=== PATIENT | male | born 2000 | race Caucasian/White ===

== ENCOUNTER 2024-09-21 01:24 | Observation (INO) | payer BC, SELFPAY ==
[2024-09-21] VITALS (10 sets, daily range): BP systolic 152–172; BP diastolic 82–113; PULSE 120–147; TEMP 36.8–39.5; O2SAT 94–98; BMI 59.1; BMI 67.1
--- NOTE | 2024-09-21 01:37 | PC.NURSE ---
complains of a rash to his right lower leg onset 1 day ago
--- NOTE | 2024-09-21 01:50 | ED_ITS ---
HPI - Fever General Chief Complaint: Extremity Problem, Nontraumatic Stated Complaint: rash r leg Time Seen by Provider: 09/21/24 01:43 Source: patient Mode of arrival: walk-in Limitations: no limitations History of Present Illness HPI Narrative: ill past couple of days with fever and feels light headed. No nausea or vomiting. erythema and pain right leg. No cough or dyspnea Related Data Previous Rx's ?Medication ?Instructions ?Recorded ibuprofen 600 mg tablet 600 mg PO Q8H PRN fever or pain 09/21/24 #30 tabs metoprolol succinate 25 mg 25 mg PO DAILY #30 tabs 09/21/24 tablet,extended release 24 hr (Toprol XL) sulfamethoxazole 800 1 tab PO BID #20 tabs 09/21/24 mg-trimethoprim 160 mg tablet (Bactrim DS) Allergies Allergy/AdvReac Type Severity Reaction Status Date / Time No Known Drug Allergies Allergy Verified 09/21/24 01:33 Review of Systems 2 ROS0 Status of ROS 10 or more systems reviewed and unremark able except as noted in history and below [facility] Medical History (Updated 09/21/24 @ 10:38 by Shaikh Luz Maria MD) Morbid (severe) obesity due to excess calories ?E66.01 - Morbid (severe) obesity due to excess calories (ICD-10) Depression ?F32.A - Depression, unspecified (ICD-10) Surgical History (Updated 09/21/24 @ 03:32 by Pushpa Martinez) History of tonsillectomy and adenoidectomy ?Z90.89 - Acquired absence of other organs (ICD-10) Family History (Updated 09/21/24 @ 03:32 by Pushpa Martinez) Other Family history of diabetes mellitus Social History (Updated 09/21/24 @ 03:33 by uPshpa Martinez) Within the past year, how often did you have a drink containing alcohol: never Score interpretation: A score less than 4 is consistent with normal alcohol consumption. Smoking status: Never smoker Non-prescribed substance use: denies use Previous occupational history: unemployed Highest level of school completed/degree received: high school graduate In a typical week, how many times do you talk on the telephone with family, friends, or neighbors: 3 or more times per week How often do you get together with friends or relatives: 3 or more times per week Little interest or pleasure in doing things: not at all Feeling down, depressed, or hopeless: not at all Feel stressed/tense/nervous/anxious/difficulty sleeping: not at all Do you think of yourself as: straight/heterosexual Gender Identity: male Exam Constitutional Vital Signs, click to edit/add: Last Vital Signs Temp 98.3 F 09/21/24 07:40 Pulse 120 H 09/21/24 09:52 Resp 18 09/21/24 07:40 BP 156/84 H 09/21/24 07:40 Pulse Ox 97 09/21/24 10:39 O2 Del Method Room Air 09/21/24 10:39 Common normals: no apparent distress, oriented x3, no limitations, alert and well nourished HENMT Common normals: normocephalic and head/scalp atraumatic Eye Common normals: PERRL, EOMs intact bilaterally and conjunctivae normal Respiratory Common normals: normal respiratory effort, no retractions, no use of accessory muscles and clear to auscultation bilaterally Cardio Common normals: S1 normal heart sound and S2 normal heart sound Rate: tachycardic GI Common normals: Normal to inspection, nondistended, normoactive bowel sounds present and soft to palpation Extremity Extremity image (front): 2 1. erythema and swelling Neuro Common normals: oriented x3, CN's II-XII intact bilaterally, moves all extremities and no focal motor deficits Psych Appearance: grossly normal Course Vital Signs Vital signs: Vital Signs Temperature 103.1 F H 09/21/24 01:33 Respiratory Rate 22 H 09/21/24 01:33 Blood Pressure 156/87 H 09/21/24 01:33 Pulse Oximetry 94 L 09/21/24 01:33 Oxygen Delivery Method Room Air 09/21/24 01:33 Temperature 98.3 F 09/21/24 07:40 Pulse Rate 120 H 09/21/24 09:52 Respiratory Rate 18 09/21/24 07:40 Blood Pressure 156/84 H 09/21/24 07:40 Pulse Oximetry 97 09/21/24 10:39 Oxygen Delivery Method Room Air 09/21/24 10:39 MDM - Fever MDM Narrative Medical decision making narrative: patient presents ill for a couple of days with fever and feeling light headed. ERythema and warmth of the RLE also has mild swelling. temp. 103. Erythema involves most of the right below knee leg. Patient medicated with IV fluids and 2 gm of Vancomycin. Discussed with the hospitalist and patient accepted for admission Lab Data Labs: Lab Results 09/21/24 Range/Units 01:58 WBC 10.2 (4.0-11.0) 10^3/uL RBC 5.00 (4.70-6.10) 10^6/uL Hgb 14.0 (14.0-18.0) g/dL Hct 42.0 (42.0-54.0) % MCV 84.0 (80.0-94.0) fL MCH 28.0 (25.9-34.0) pg MCHC 33.3 (29.9-35.2) g/dL RDW 13.6 (11.0-15.0) % Plt Count 212 (150-450) 10^3/uL MPV 9.0 L (9.5-13.5) fL Neut % (Auto) 82.2 H (43.0-75.0) % Lymph % (Auto) 10.9 L (20.5-60.0) % Rooks % (Auto) 6.2 (1.7-12.0) % Eos % (Auto) 0.0 L (0.9-7.0) % Baso % (Auto) 0.2 (0.2-2.0) % Neut # (Auto) 8.4 H (1.4-6.5) 10^3/uL Lymph # (Auto) 1.1 L (1.2-3.8) 10^3/uL Rooks # (Auto) 0.6 (0.3-0.8) 10^3/uL Eos # (Auto) 0.0 (0.0-0.7) 10^3/uL Baso # (Auto) 0.0 (0.0-0.1) 10^3/uL Abs Immat Gran (auto) 0.05 H (0.00-0.03) 10^3/uL Imm/Tot Granulo (auto) 0.5 (0.0-0.5) % Sodium 131 L (136-145) mmol/L Potassium 3.9 (3.5-5.1) mmol/L Chloride 96 L (98-107) mmol/L Carbon Dioxide 22.3 (21.0-32.0) mmol/L Anion Gap 16.6 BUN 13.0 (7.0-18.0) mg/dL Creatinine 1.18 (0.70-1.30) mg/dL Est GFR ( Amer) >60 (>=60 mL/min/1.73m^2) Est GFR (Non-Af Amer) >60 (>=60 mL/min/1.73m^2) BUN/Creatinine Ratio 11.0 Glucose 128 H (74-106) mg/dL Lactate 1.7 (0.4-2.0) mmol/L Calcium 9.5 (8.5-10.1) mg/dL Discharge Plan Discharge Chief Complaint: Extremity Problem, Nontraumatic Clinical Impression: Cellulitis Qualifiers: Site of cellulitis: extremity Site of cellulitis of extremity: lower extremity Laterality: right Qualified Code(s): L03.115 - Cellulitis of right lower limb Patient Disposition: Admitted as Observation Discharge Date/Time: 09/21/24 03:14
[2024-09-21 02:03] LABS: Basophils Percent Auto 0.2 % (0.2-2.0); Immature Granulocytes Abs Auto 0.05 10^3/uL (0.00-0.03); Immature Granulocytes Pct Auto 0.5 % (0.0-0.5); Lymphocytes Absolute Auto 1.1 10^3/uL (1.2-3.8); Lymphocytes Percent Auto 10.9 % (20.5-60.0); Mean Corpuscular HGB Conc 33.3 g/dL (29.9-35.2); Monocytes Absolute Auto 0.6 10^3/uL (0.3-0.8); Monocytes Percent Auto 6.2 % (1.7-12.0); Neutrophils Absolute Auto 8.4 10^3/uL (1.4-6.5); Neutrophils Percent Auto 82.2 % (43.0-75.0); Platelet Count 212 10^3/uL (150-450); Red Cell Distribution Width 13.6 % (11.0-15.0); White Blood Count 10.2 10^3/uL (4.0-11.0)
[2024-09-21] MEDS: 0.9 % SODIUM CHLORIDE 1,000 ML 999 ML IV (02:06)
[2024-09-21] MEDS: IBUPROFEN 400 MG TABLET 800 MG PO (02:14)
[2024-09-21 02:15] LABS: Anion Gap 16.6; Calcium 9.5 mg/dL (8.5-10.1); Carbon Dioxide 22.3 mmol/L (21.0-32.0); Chloride 96 mmol/L (98-107); Estimated GFR (African America >60 (>=60 mL/min/1.73m^2); Estimated GFR (Non-African Ame >60 (>=60 mL/min/1.73m^2); Glucose 128 mg/dL (74-106); Potassium 3.9 mmol/L (3.5-5.1); Sodium 131 mmol/L (136-145)
[2024-09-21] MEDS: VANCOMYCIN HCL 2,000 MG in 0.9 % SODIUM CHLORIDE 500 ML 250 MG IV (02:19)
[2024-09-21 02:24] LABS: Lactate/Lactic Acid 1.7 mmol/L (0.4-2.0)
--- NOTE | 2024-09-21 03:24 | ECG_ITS ---
[facility] Test Date: 2024-09-21 Pat Name: OMER MCCLAIN Department: Room: [facility] Gender: Male Res Counselor: : 2000 Requested By: Order Number: [id number] Reading MD: POP NEWTON Measurements Intervals [place] Rate: 148 P: 49 [place]: 143 QRS: 58 QRSD: 90 T: 17 QT: 279 QTc: 438 Interpretive Statements SINUS TACHYCARDIA, POSSIBLE ATRIAL FLUTTER NONSPECIFIC T-WAVE ABNORMALITY ABNORMAL RHYTHM ECG Compared to ECG 12/01/2019 21:20:13 T-wave abnormality now present Electronically Signed On 09-21-2024 6:55:49 EST by POP NEWTON
--- NOTE | 2024-09-21 03:24 | CT_ITS ---
[address] [address] Patient Name: OMER MCCLAIN MRN: [id number] date: 2000 Sex: M Assigned Patient Location: [place] Current Patient Location: [place] Accession/Order Number: [id number] Exam Date: 09/21/2024 03:50 Report Date: 09/21/2024 05:39 At the request of: CARLA JANG Procedure: CT lower leg RT wo/w con EXAMINATION: CT lower leg RT wo/w con HISTORY: right leg cellulitis with sepsis COMPARISON: No relevant comparison available. TECHNIQUE: Multi-planar CT images were created without and/or with IV contrast according to examination type. Dose reduction techniques were achieved by using automated exposure control and/or adjustment of mA and/or kV according to patient size and/or use of iterative reconstruction technique. FINDINGS: BONES: No fracture, dislocation, bone lesion. Moderate narrowing of the medial compartment of the knee joint. SOFT TISSUES: Subcutaneous edema of the lower extremity, greatest involving the posterior lateral aspect. No fluid collection, mass, or abnormal enhancement. EFFUSION: None visible. OTHER: Negative. CT/CT lower leg RT wo/w con IMPRESSION: 1. Subcutaneous edema and skin thickening suggestive of cellulitis. 2. Joint space narrowing of the medial compartment of the knee suggestive of cartilage thinning or meniscus extrusion. Electronically authenticated by: BOB SMITH Date: 09/21/2024 05:39
--- NOTE | 2024-09-21 03:37 | PC.NURSE ---
this patient is awake and alert sitting upright on the bed, this patient voices no complaints and shows no signs of distress. this patient was transferred upstairs via bed, this patient had his iv fluids and iv atb continued infusion while transferred upstairs. per casting house worker asked to make sure that Dr Orozco knows this patient vitals, I called Dr Patrick and informed him of the casting house worker concerns. Dr Patrick was re-informed of this patient vitals, and he said that call take care of that upstairs. i took a manual blood pressure and see vitals
[2024-09-21 06:06] LABS: Basophils Percent Auto 0.1 % (0.2-2.0); Hematocrit 40.7 % (42.0-54.0); Hemoglobin 13.8 g/dL (14.0-18.0); Immature Granulocytes Abs Auto 0.06 10^3/uL (0.00-0.03); Immature Granulocytes Pct Auto 0.5 % (0.0-0.5); Lymphocytes Absolute Auto 1.6 10^3/uL (1.2-3.8); Lymphocytes Percent Auto 13.5 % (20.5-60.0); Mean Corpuscular HGB Conc 33.9 g/dL (29.9-35.2); Mean Corpuscular Hemoglobin 28.6 pg (25.9-34.0); Mean Corpuscular Volume 84.3 fL (80.0-94.0); Mean Platelet Volume 8.7 fL (9.5-13.5); Monocytes Absolute Auto 0.6 10^3/uL (0.3-0.8); Monocytes Percent Auto 5.3 % (1.7-12.0); Neutrophils Absolute Auto 9.3 10^3/uL (1.4-6.5); Neutrophils Percent Auto 80.6 % (43.0-75.0); Platelet Count 230 10^3/uL (150-450); Red Blood Count 4.83 10^6/uL (4.70-6.10); Red Cell Distribution Width 13.6 % (11.0-15.0); White Blood Count 11.5 10^3/uL (4.0-11.0)
[2024-09-21 06:29] LABS: Alanine Aminotransferase 27 U/L (16-63); Albumin Globulin Ratio 0.6; Albumin Level 2.8 g/dL (3.4-5.0); Alkaline Phosphatase 77 U/L (46-116); Anion Gap 16.5; Aspartate Amino Transferase 22 U/L (15-37); BUN Creatinine Ratio 10.1; Bilirubin Total 0.7 mg/dL (0.2-1.0); Calcium 8.6 mg/dL (8.5-10.1); Carbon Dioxide 23.1 mmol/L (21.0-32.0); Chloride 98 mmol/L (98-107); Estimated GFR (African America >60 (>=60 mL/min/1.73m^2); Estimated GFR (Non-African Ame >60 (>=60 mL/min/1.73m^2); Glucose 119 mg/dL (74-106); Magnesium 1.8 mg/dL (1.8-2.4); Potassium 3.6 mmol/L (3.5-5.1); Sodium 134 mmol/L (136-145); Total Protein 7.8 g/dL (6.4-8.2)
[2024-09-21 06:42] LABS: C Reactive Protein 42.49 mg/dL (<=0.50); Creatine Kinase 289 U/L (39-308); Creatine Kinase MB <0.50 ng/mL (<=3.60); Myoglobin 168 ng/mL (16-96); Troponin I High Sensitivity 10.7 pg/mL (4.0-76.1)
[2024-09-21] MEDS: HEPARIN SODIUM (PORCINE) 5,000 UNIT/ML VIAL 7500 UNIT SUBQ (09:43)
[2024-09-21] MEDS: LINEZOLID IN DEXTROSE 5% 600 MG/300 ML PIGGYBACK 300 MG IV (09:43)
--- NOTE | 2024-09-21 10:31 | PM.HP ---
HPI H&P: HPI History of Present Illness Chief complaint: rash r leg Narrative: HPI and Hospital Course: HPI and Hospital Course: 23 y o morbidly obese male, presented to ED with right leg extremity erythema, tenderness and pain. He noticed a small bump on his right leg 2 days that rapidly progressed and worsened over past 2 days. He came to ED last night for it and was found to have fever of 101. He was also noted to be tachycardic but this is chronic and he is supposed to be on Toprol which he has not been using for past few months. Patient was found to have RLE cellulitis and was treated with Vancomycin. He is afebrile today and feels that pain/erythema and swelling has improved overnight with IV abx. Patient denies nausea, vomiting, leg trauma, prior hx of cellulitis. He also denies hx of T2 DM or current immunosuppression. Besides tachycardia, that is chronic, he is hemodynamically stable and can be discharged on oral abx to finish treatment course of cellulitis. Patient educated on worrisome signs and symptoms, importance of compliance and f/u and to return to ED if he develops persistent fever, hemodynamic instability or worsening pain/erythema while on oral abx. He was also instructed to f/u with PCP in one week Opioid HPI Opioid Management Most Recent Pain and Opioid Data: Last Pain Scale 0 09/21/24 08:00 09/21/24 Last Pain Assessment 09/21/24 10:32 Last ORT Total Score 2 09/21/24 03:26 09/21/24 Last ORT Risk Category Low Risk 09/21/24 03:26 09/21/24 Review of Systems ROS Status of ROS 10 or more systems reviewed and unremarkable except as noted in history and below [facility] Medical History (Updated 09/21/24 @ 10:38 by Shaikh Luz Maria MD) Morbid (severe) obesity due to excess calories ?E66.01 - Morbid (severe) obesity due to excess calories (ICD-10) Depression ?F32.A - Depression, unspecified (ICD-10) Surgical History (Updated 09/21/24 @ 03:32 by Pushpa Martinez) History of tonsillectomy and adenoidectomy ?Z90.89 - Acquired absence of other organs (ICD-10) Family History (Updated 09/21/24 @ 03:32 by Pushpa Martinez) Other Family history of diabetes mellitus Social History (Updated 09/21/24 @ 03:33 by Pushpa Martinez) Within the past year, how often did you have a drink containing alcohol: never Score interpretation: A score less than 4 is consistent with normal alcohol consumption. Smoking status: Never smoker Non-prescribed substance use: denies use Previous occupational history: unemployed Highest level of school completed/degree received: high school graduate In a typical week, how many times do you talk on the telephone with family, friends, or neighbors: 3 or more times per week How often do you get together with friends or relatives: 3 or more times per week Little interest or pleasure in doing things: not at all Feeling down, depressed, or hopeless: not at all Feel stressed/tense/nervous/anxious/difficulty sleeping: not at all Do you think of yourself as: straight/heterosexual Gender Identity: male Meds Home Medications and Allergies Home Medications ?Medication ?Instructions ?Recorded ?Confirmed ?Type No Known Home Medications 09/21/24 09/21/24 History Allergies Allergy/AdvReac Type Severity Reaction Status Date / Time No Known Drug Allergies Allergy Verified 09/21/24 01:33 Exam Constitutional Vital Signs, click to edit/add: Last Vital Signs Temp 98.3 F 09/21/24 07:40 Pulse 120 H 09/21/24 09:52 Resp 18 09/21/24 07:40 BP 156/84 H 09/21/24 07:40 Pulse Ox 98 09/21/24 07:40 O2 Del Method Room Air 09/21/24 07:40 Documenting provider has reviewed patient's vital signs: yes Common normals: no apparent distress and oriented x3 General appearance: cooperative Nutritional appearance: obese Eye Common normals: conjunctivae normal and no scleral icterus Conjunctiva: conjunctiva(e) normal Respiratory Common normals: normal respiratory effort and clear to auscultation bilaterally Effort & inspection: able to speak in complete sentences Auscultation: clear to auscultation bilaterally Cardio Common normals: regular rate, S1 normal heart sound and S2 normal heart sound Rate: regular rate Heart sounds: S1 normal and S2 normal Extremity Common normals: no clubbing, cyanosis or edema Other: Distinct/well demarcated area of erythema,pain and tenderness of RLE - about 10x10 cm. Warm to touch Neuro Common normals: oriented x3, moves all extremities and no focal motor deficits Psych Common normals: mental status grossly normal, denies hallucinations, denies homicidal ideation and denies suicidal ideation Results Labs Labs: Short CBC 09/21/24 09/21/24 Range/Units 01:58 05:38 WBC 10.2 11.5 H (4.0-11.0) 10^3/uL Hgb 14.0 13.8 L (14.0-18.0) g/dL Hct 42.0 40.7 L (42.0-54.0) % Plt Count 212 230 (150-450) 10^3/uL BMP 09/21/24 09/21/24 01:58 05:38 Sodium 131 L 134 L Potassium 3.9 3.6 Chloride 96 L 98 Carbon Dioxide 22.3 23.1 BUN 13.0 11.0 Creatinine 1.18 1.09 Glucose 128 H 119 H Calcium 9.5 8.6 Cardiac Enzymes 09/21/24 Range/Units 05:38 Total Creatine Kinase 289 (39-308) U/L CK-MB (CK-2) <0.50 (<=3.60) ng/mL Liver Function 09/21/24 Range/Units 05:38 Total Bilirubin 0.7 (0.2-1.0) mg/dL AST 22 (15-37) U/L ALT 27 (16-63) U/L Alkaline Phosphatase 77 (46-116) U/L Albumin 2.8 L (3.4-5.0) g/dL Assessment and Plan Assessment and Plan (1) Cellulitis: Assessment and Plan: Hemodynamically stable, improved overnight with IV abx. Stable for discharge on oral bactrim. Qualifiers: Site of cellulitis: extremity Site of cellulitis of extremity: lower extremity Laterality: right Qualified Code(s): L03.115 - Cellulitis of right lower limb (2) Sinus tachycardia: Assessment and Plan: Chronic, supposed to be on Toprol. Ran out of it. Will prescribed. Stressed upon importance of compiance. (3) Depression: Assessment and Plan: Stable. no SI/HI. Recommended fu with PCP. Qualifiers: Depression Type: major depressive disorder Major depression recurrence: recurrent Active/Remission status: in partial remission Qualified Code(s): F33.41 - Major depressive disorder, recurrent, in partial remission (4) Morbid (severe) obesity due to excess calories: Assessment and Plan: Recommended weight loss. He is a good candidate for bariatric surgery. Defer to PCP
--- NOTE | 2024-09-21 10:41 | CM.NOTE ---
Rounds made with Dr. Loera. Cricket relates he is unable to pay for prescriptions--Good RX card given. Plan for discharge today. Cricket in agreement.
--- NOTE | 2024-09-22 13:31 | CM.DCFOLLOWU ---
1st attempt 09/22/24, no answer
--- NOTE | 2024-09-22 13:32 | CM.DCFOLLOWU ---
1st attempt 09/22/24, no answer
--- NOTE | 2024-09-23 13:35 | CM.DCFOLLOWU ---
2nd attempt 09/23/24, no answer
--- NOTE | 2024-09-25 13:44 | CM.DCFOLLOWU ---
3rd attempt 09/25/24, no answer
== END 2024-09-21 12:13 | disposition home or self-care (01) ==
LOC: ER 02:54 → MS 03:13
PROVIDERS: Registered Nurse; Admitting Provider Internal Medicine; Emergency Provider Internal Medicine; PCP Family Medicine; Visit Provider Internal Medicine
DX: L03.115 Cellulitis of right lower limb (principal); E66.01 Morbid (severe) obesity due to excess calories; F32.A Depression, unspecified; R00.0 Tachycardia, unspecified; Z68.44 Body mass index [BMI] 60.0-69.9, adult
CPT/HCPCS: 36415; 73702; 80048; 80053; 82550; 82553; 83605; 83735; 83874; 84484; 85025; 86140; 93005; 94761; 96365; 96366; 96367; 96372; 99285; G0378; J1644; J2020; J3370; Q9967

== ENCOUNTER 2024-09-25 15:34 | Emergency (ER) | payer BC, SELFPAY ==
[2024-09-25 15:45] VITALS: BP 177/85; PULSE 114; TEMP 36.7; O2SAT 98; BMI 63.5
--- NOTE | 2024-09-25 16:57 | PC.NURSE ---
dressing removed telfa dressing applied to back of leg pt tolerates well
--- NOTE | 2024-09-25 16:59 | ED_ITS ---
HPI HPI - General Adult General Chief complaint: Recheck/Abnormal Lab/Rx Stated complaint: CELLULITIS, WAS HERE ON SATURDAY Time Seen by Provider: 09/25/24 16:27 Mode of arrival: walk-in History of Present Illness HPI narrative: This patient is a 23-year-old male who presents to the emergency department for blisters that he noted on the back of his leg today. Patient was admitted for circumferential cellulitis of the right calf earlier this week. He was discharged 3 days ago and started on antibiotics. He states overall his right leg has improved significantly and he no longer has circumferential erythema, he now has concentrated erythema to the posterior right calf and today noted blisters around the area. Several of the blisters have opened and drained, he denies any new fevers, vomiting or pain. Related Data Previous Rx's ?Medication ?Instructions ?Recorded ibuprofen 600 mg tablet 600 mg PO Q8H PRN fever or pain 09/21/24 #30 tabs metoprolol succinate 25 mg 25 mg PO DAILY #30 tabs 09/21/24 tablet,extended release 24 hr (Toprol XL) sulfamethoxazole 800 1 tab PO BID #20 tabs 09/21/24 mg-trimethoprim 160 mg tablet (Bactrim DS) Allergies Allergy/AdvReac Type Severity Reaction Status Date / Time No Known Drug Allergies Allergy Verified 09/21/24 01:33 Opioid HPI Opioid Management Most Recent Opioid Data: Last Pain Scale 0 09/21/24 08:00 09/21/24 Last Pain Assessment 09/21/24 11:21 Last ORT Total Score 2 09/21/24 03:26 09/21/24 Last ORT Risk Category Low Risk 09/21/24 03:26 09/21/24 Review of Systems ROS Constitutional Denies: fever or chills Ears, nose, mouth, and throat Denies: throat pain or nasal congestion Respiratory Denies: shortness of breath Gastrointestinal Denies: nausea or vomiting Integumentary/Breast Reports: redness and skin pain; Denies: rash or itching Hematologic/Lymphatic Denies: easy bruising or easy bleeding [facility] Medical History (Updated 09/25/24 @ 17:00 by ANNA Clayton) Sinus tachycardia ?R00.0 - Tachycardia, unspecified (ICD-10) Cellulitis ?L03.90 - Cellulitis, unspecified (ICD-10) Morbid (severe) obesity due to excess calories ?E66.01 - Morbid (severe) obesity due to excess calories (ICD-10) Depression ?F32.A - Depression, unspecified (ICD-10) Surgical History (Updated 09/21/24 @ 03:32 by Pushpa Martinez) History of tonsillectomy and adenoidectomy ?Z90.89 - Acquired absence of other organs (ICD-10) Family History (Updated 09/21/24 @ 03:32 by Pushpa Martinez) Other Family history of diabetes mellitus Social History Within the past year, how often did you have a drink containing alcohol: never Score interpretation: A score less than 4 is consistent with normal alcohol consumption. Smoking status: Never smoker Non-prescribed substance use: denies use Previous occupational history: unemployed Highest level of school completed/degree received: high school graduate In a typical week, how many times do you talk on the telephone with family, friends, or neighbors: 3 or more times per week How often do you get together with friends or relatives: 3 or more times per week Little interest or pleasure in doing things: not at all Feeling down, depressed, or hopeless: not at all Feel stressed/tense/nervous/anxious/difficulty sleeping: not at all Do you think of yourself as: straight/heterosexual Gender Identity: male Exam Narrative Exam Narrative: Gen.: Awake, alert, in no distress, morbidly obese Head: Normocephalic, atraumatic ENT: Moist mucous membranes Respiratory: No respiratory distress Extremities: Moves extremities equally, calves are symmetric. Right calf with erythema noted to the posterior right calf and erythema has fluid-filled blisters noted to the lateral and inferior aspect of the redness. No active drainage or purulence. No circumferential erythema Psych: Normal mood and affect Neuro: No focal neuro deficit Skin: Warm, dry, intact Constitutional Vital Signs, click to edit/add: Last Vital Signs Temp 98.1 F 09/25/24 15:45 Pulse 114 H 09/25/24 15:45 Resp 18 09/25/24 15:45 BP 177/85 H 09/25/24 15:45 Pulse Ox 98 09/25/24 15:45 Course Vital Signs Vital signs: Vital Signs Temperature 98.1 F 09/25/24 15:45 Pulse Rate 114 H 09/25/24 15:45 Respiratory Rate 18 09/25/24 15:45 Blood Pressure 177/85 H 09/25/24 15:45 Pulse Oximetry 98 09/25/24 15:45 Temperature 98.1 F 09/25/24 15:45 Pulse Rate 114 H 09/25/24 15:45 Respiratory Rate 18 09/25/24 15:45 Blood Pressure 177/85 H 09/25/24 15:45 Pulse Oximetry 98 09/25/24 15:45 Medical Decision Making MDM Narrative Medical decision making narrative: Patient and family were given education and reassurance, suspect that the patient's morbid obesity is causing dependent edema to the posterior right calf with blister formation. No evidence of worsening cellulitis at this time. Reevaluated by attending physician and the patient is discharged home to continue regular wound care. Return to the ER if symptoms change or worsen SHARED APC VISIT, PHYSICIAN ATTESTATION: [id number] I performed a substantive part of the MDM during the patient?s E/M visit. I personally evaluated and examined the patient. I personally made or approved the documented management plan and acknowledge its risk of complications. Medical Records Medical records reviewed: Yes I reviewed the patient's medical records Discharge Plan Discharge Chief Complaint: Recheck/Abnormal Lab/Rx Clinical Impression: Encounter for wound re-check Patient Disposition: Home, Self-Care Time of Disposition Decision: 16:59 Condition: Good Prescriptions / Home Meds: No Action sulfamethoxazole-trimethoprim [Bactrim DS] 800-160 mg tablet 1 tab PO BID Qty: 20 0RF ibuprofen 600 mg tablet 600 mg PO Q8H PRN (Reason: fever or pain) Qty: 30 0RF metoprolol succinate [Toprol XL] 25 mg tablet extended release 24 hr 25 mg PO DAILY Qty: 30 0RF Print Language: Malagasy Instructions: [place] (ED) Referrals: CLAIRE DUDLEY [Primary Care Provider] - 1 week
== END 2024-09-25 17:02 | disposition home or self-care (01) ==
PROVIDERS: Emergency Provider Emergency Medicine; PCP Family Medicine
DX: Z51.89 Encounter for other specified aftercare (principal); R23.8 Other skin changes; R60.0 Localized edema; E66.01 Morbid (severe) obesity due to excess calories; Z68.44 Body mass index [BMI] 60.0-69.9, adult
CPT/HCPCS: 99281